=== PATIENT | male | born 1970 | race Hispanic/Latino ===

== ENCOUNTER → 2024-04-11 | Outpatient (REF) | payer OTHER | LOC: US 07:23 | PROVIDERS: ATTEND Nurse Practitioner | DX: Z12.11 Encounter for screening for malignant neoplasm of colon (principal); R10.9 Unspecified abdominal pain | CPT/HCPCS: 76700 ==

== ENCOUNTER → 2024-04-18 | Day surgery (SDC) | payer OTHER ==
[~2024-04-18] MED LIST: FENTANYL CITRATE/PF 100MCG/2 ML INJ ONE; HYOSCYAMINE SULFATE 0.5 MG/ML INJ ONE; PROPOFOL IV EMULSION 50 ML IV ONE
[2024-04-18] MEDS: LACTATED RINGER'S 1,000 ML ONE (14:03)
[2024-04-18 15:30] VITALS: BP 130/68; PULSE 64; RESP 14; O2SAT 97
== END | disposition home or self-care (01) ==
LOC: OR 13:20
PROVIDERS: ATTEND Internal Medicine Gastroenterology
DX: Z12.11 Encounter for screening for malignant neoplasm of colon (principal); K63.5 Polyp of colon; K62.1 Rectal polyp; K64.8 Other hemorrhoids; R10.9 Unspecified abdominal pain; R14.0 Abdominal distension (gaseous); Z71.3 Dietary counseling and surveillance; Z71.89 Other specified counseling; Z68.30 Body mass index [BMI] 30.0-30.9, adult
CPT/HCPCS: 45380; 45385; 93005; J1980; J2704; J3010; J7121; 45378